=== PATIENT | female | born 1995 | race Caucasian/White ===

== ENCOUNTER 2019-11-24 11:26 | Inpatient (IN) ==
[2019-11-24] MEDS ORDERED: RINGER'S SOLUTION,LACTATED 1,000 ML IV ONE (18:39)
[2019-11-24] MEDS ORDERED: LIDOCAINE HCL 50 ML VIAL PERI PRN (18:39)
[2019-11-24] MEDS ORDERED: ONDANSETRON 4 MG TAB.RAPDIS PO PRN (18:39)
[2019-11-24] MEDS ORDERED: BUTORPHANOL TARTRATE 2 MG/ML VIAL IV PRN ×2 (18:39)
[2019-11-24] MEDS ORDERED: OXYTOCIN/DEXTROSE 5%-WATER 30 UNITS/500 ML BAG IV ONE (18:39)
[2019-11-24] MEDS: MISOPROSTOL 100 MCG TABLET VG PRN (19:34)
[2019-11-24 19:37] LABS: Cocaine Ur Negative (NEGATIVE); Urine Barbiturate Negative (NEGATIVE); Urine Benzodiazepines Negative (NEGATIVE); Urine Opiates Negative (NEGATIVE); Urine PCP Negative (NEGATIVE); Urine THC Negative (NEGATIVE)
[2019-11-24] MEDS: RINGER'S SOLUTION,LACTATED 1,000 ML IV PRN (19:38)
[2019-11-25] MEDS: MISOPROSTOL 100 MCG TABLET VG PRN ×2 (01:20→06:30)
[2019-11-25] MEDS: RINGER'S SOLUTION,LACTATED 1,000 ML IV PRN ×2 (10:39→20:26)
--- NOTE | 2019-11-25 12:43 | HP ---
Chief Complaint - Chief Complaint Date of Service: 11/25/19 Time of Service: 12:40 Chief Complaint: labor induction History of Present Illness: 24 year old at 39w 1d who presents for elective IOL. She reports ctx that are not painful. She denies vb or lof. Fetus is active. Medical History (Last Reviewed 11/25/19 @ 12:40 by Yady Li MD) Anxiety Depression Surgical History: Surgical History (Last Reviewed 11/25/19 @ 12:40 by Yady Li MD) No pertinent past surgical history Family History: Family History (Last Reviewed 11/25/19 @ 12:41 by Yady Li MD) Grandfather Melanoma Father Alive and well Mother Alive and well Social History: (Last Reviewed 11/25/19 @ 12:41 by Yady Li MD) Social History: adopted: No Marital status: Single household members: family current occupational status: unemployed current occupational exposures/hazards: No Highest education level completed: high school graduate Service: No Tobacco: Smoking Status: Former smoker Alcohol: alcohol intake: never Substance Use: substance use type: does not use Dietary Habits: caffeine: Yes caffeine comment: occasional Review Of Systems (GEN) - Review of Systems Generalized/Overall Review: Present: No Symptoms Reported Genitourinary: Present: Other - contractions Misc: All systems neg except as marked Immunizations: IMMUNIZATION HX Immunizations Up to Date Yes History of Influenza Vaccine More Information Required Hx Pneumococcal Vaccination More Information Required Allergies/Adverse Reactions: Allergies Allergy/AdvReac Type Severity Reaction Status Date / Time No Known Allergies Allergy Verified 11/24/19 19:18 Exam - Exam Vital Signs: Vital Signs - Last Taken Temp 36.4 C 11/24/19 18:39 Pulse 96 11/24/19 18:39 Resp 16 11/24/19 18:39 BP 134/70 11/24/19 18:39 Pulse Ox 100 11/24/19 18:39 Constitutional: Present: Alert, Oriented x3, Cooperative, No distress ENT Exam: Present: hearing grossly normal Neck: Present: supple Back Exam: Present: normal inspection, no CVA tenderness Respiratory: Present: lungs clear, normal breath sounds Cardiovascular/Chest: Present: regular rate, rhythm Abdomen: Present: soft, nontender, nondistended /Rectal: Present: Other - 2/80/-1 AROM for a large amount of clear fluid Extremity: Present: non-tender, no calf tenderness Skin Exam: Present: normal color, warm/dry, no cyanosis Appearance: Present: appropriate appearance Eye contact: Present: cooperative Thoughts: Present: normal thought pattern Diagnostic Studies: Laboratory Results Urine Opiates Screen Negative (NEGATIVE) 11/24/19 19:19 Barbiturate Screen Negative (NEGATIVE) 11/24/19 19:19 Ur Phencyclidine Scrn Negative (NEGATIVE) 11/24/19 19:19 Urine Amphetamine Negative (NEGATIVE) 11/24/19 19:19 U Benzodiazepines Scrn Negative (NEGATIVE) 11/24/19 19:19 Urine Cocaine Screen Negative (NEGATIVE) 11/24/19 19:19 Urine Marijuana (THC) Negative (NEGATIVE) 11/24/19 19:19 Blood Type O Positive 11/24/19 18:47 Antibody Screen Negative 11/24/19 18:47 Assessment/Plan - Narrative Narrative: 24 year old at 39w 1d Elective IOL: patient on pitocin and AROM GBS negative: prophylaxis not indicated FHT cat 1
[2019-11-25] MEDS ORDERED: BUPIVACAINE HCL/0.9 % NACL/PF 250 ML EP PRN (15:22)
[2019-11-25] MEDS ORDERED: ONDANSETRON HCL/PF 2 MG/ML VIAL IV PRN (15:22)
[2019-11-25] MEDS ORDERED: NALOXONE HCL 1 MG/1 ML SYRG IV PRN (15:22)
[2019-11-25] MEDS ORDERED: fentaNYL CITRATE/PF 50 MCG/ML AMPUL IT SCH (15:30)
--- NOTE | 2019-11-25 16:08 | ANES ---
Anesthesia Pre Procedure Eval Vitals/Labs: Last Vital Signs Temp 36.4 C 11/24/19 18:39 Pulse 96 11/24/19 18:39 Resp 16 11/24/19 18:39 BP 134/70 11/24/19 18:39 Pulse Ox 100 11/24/19 18:39 Allergies/Adverse Reactions: Allergies Allergy/AdvReac Type Severity Reaction Status Date / Time No Known Allergies Allergy Verified 11/24/19 19:18 - Planned Procedure Planned Procedure: ELECTIVE INDUCTION Medication List Reviewed:: Yes Allergies Verified: Yes Medical History (Last Reviewed 11/25/19 @ 16:07 by Adams David CRNA) Anxiety Depression Surgical History (Last Reviewed 11/25/19 @ 16:07 by Adams David CRNA) No pertinent past surgical history Family History (Last Reviewed 11/25/19 @ 16:07 by Adams David CRNA) Grandfather Melanoma Father Alive and well Mother Alive and well - Family Anesthesia History Family History:: no untoward family reactions to anesthesia - Airway/Neck/Teeth Within Normal Limits:: Yes Teeth Condition: intact Mallampatti Score: 1 Thyromental (T-M) distance: > 6 cm Mandibulo Hyoid distance: > 3 cm - Respiratory Respiratory Physical: lungs clear Smoking Status: Former smoker Sleep Apnea currently treated: No Sleep Apnea by current assessment: No - Cardiovascular Tolerate Activity: Good Heart Sounds: S1 & S2, Regular - Gastrointestinal NPO since: 1500 - Anesthesia Assessment and Plan ASA Class: PS, II, E Anesthesia Type Plan: Epidural Planned difficult intubation/equipment available: No
--- NOTE | 2019-11-25 16:08 | ANES ---
Post Anesthesia Discharge - Transfer of Care Transfer of Care handoff given to nurse: Yes - Anesthesia Post Op Note Anesthesia Post Op Note: care transferred to OB RN
--- NOTE | 2019-11-25 16:09 | ANES ---
Post Anesthesia Assessment - Vital Signs Vitals: Last Vital Signs Temp 36.4 C 11/24/19 18:39 Pulse 96 11/24/19 18:39 Resp 16 11/24/19 18:39 BP 134/70 11/24/19 18:39 Pulse Ox 100 11/24/19 18:39 Airway Patency: Normal - Mental Status Level Of Consciousness: Awake - Pain Level Pain Score: 2 - N/V Assessment Nausea/Vomiting Presence: None Dehydration:: No
--- NOTE | 2019-11-25 16:11 | ANES ---
Anesthesia Procedure Note Procedure Note: ANESTHESIA PROCEDURE NOTE Date of Procedure: 11/25/2019 Time of procedure: 1550. Performed by: Diony David CRNA Pleater: None. Preprocedure diagnosis: Active labor. Post procedure diagnosis: Same. Procedure: Insertion of labor epidural. Indications: The patient is a 24-year-old prima para female in active labor requesting labor epidural for pain management. Findings: See below. Details of the procedure: The patient was placed in a sitting position. Back was prepped with DuraPrep. Patient was then draped in a sterile fashion. Lidocaine 1% was infiltrated to the skin and subcutaneous tissues at the level of the L3 4 interspace. The epidural space was identified using a 18-gauge Tuohy needle with [id number] technique. 20 mcg fentanyl was given intrathecally using a 27 ga. spinal needle. Epidural catheter was inserted without difficulty. Negative test dose was elicited using 5 mL of 1.5% preservative-free lidocaine plus epinephrine 1 200,000. The epidural catheter was then taped and secured in place. EBL: Minimal. Fluids: N/A. Specimen: N/A. Post procedure condition: The patient tolerated the procedure well. No complications were noted. Thank you for this consultation. Box CRNA
--- NOTE | 2019-11-25 22:24 | OR ---
Operative Report - Dictated Report Narrative: Date of delivery: 11/25/2019 Time of delivery: 2156 Gender: female weight: 3047 grams APGARS: 07/28 Procedure: Description of the procedure: The patient is a 24 year old at 39w 1d who presented to labor and delivery for an elective IOL. She received misoprostol x3 followed by pitocin and AROM. She progressed to complete dilation. She delivered a viable female infant over an intact perineum. There was a slight delay from delivery of the head to the shoulders secondary to poor maternal effort. However, the shoulders delivered without difficulty followed by the rest of the infant. Cord clamping was delayed for 60 seconds due to vigorous . The cord was clamped and cut. The placenta was delivered by expression and appeared intact. EBL: 150 mL Laceration: left inferior labial, not repaired because it was hemostatic Complications: none Specimens: none History for MU Definition: * The number of deliveries resulting in a live the patient experienced prior to current hospitalization * The previous delivery of live twins or any live multiple gestation is considered one live event. *If primagravida or nulliparous is documented select zero for the number of previous live births. Live Events: 0
[2019-11-26] MEDS ORDERED: IBUPROFEN 800 MG TABLET PO PRN ×2 (01:39→07:34)
[2019-11-26] MEDS ORDERED: GLYCERIN/WITCH HAZEL LEAF 40 APPL BOX TP ONE (01:39)
[2019-11-26] MEDS ORDERED: BENZOCAINE/MENTHOL 81 SPRAY CAN TP PRN (07:34)
[2019-11-26] MEDS ORDERED: GLYCERIN/WITCH HAZEL LEAF 40 APPL BOX TP PRN (07:34)
[2019-11-26] MEDS ORDERED: SENNOSIDES 8.6 MG TABLET PO PRN (07:34)
[2019-11-26] MEDS ORDERED: HYDROCORTISONE 30 APPL TUBE TP PRN (07:34)
[2019-11-26] MEDS ORDERED: OXYTOCIN/DEXTROSE 5%-WATER 30 UNITS/500 ML BAG IV ONE (07:34)
[2019-11-26] MEDS ORDERED: oxyCODONE HCL/ACETAMINOPHEN 1 TAB TABLET PO PRN (07:34)
[2019-11-26] MEDS ORDERED: BISACODYL 10 MG SUPP.RECT RC PRN (07:34)
[2019-11-26] MEDS ORDERED: ACETAMINOPHEN 325 MG TABLET PO PRN (07:34)
--- NOTE | 2019-11-26 09:05 | PN ---
Subjective - Date and Time Seen Date: 11/26/19 Time: 09:04 Objective - Vitals Vitals: Last Vital Signs Temp 35.9 C L 11/26/19 07:00 Pulse 76 11/26/19 07:00 Resp 16 11/26/19 07:00 BP 109/66 11/26/19 07:00 Pulse Ox 99 11/26/19 07:00 Patient denies complaints. Lochia wnl abdomen - soft, nontender Uterus -firm, at umbilicus - 1 no calf tenderness Impression: day #1 - s/p spontaneous vaginal delivery. Plan: Continue routine care Cauti Physician Documentation - Urinary Catheter Management Urethral (Bhakta) Date of Insertion: 11/25/19 Time of Insertion: 16:33 Date of Removal: 11/25/19 Time of Removal: 21:10
[2019-11-26] MEDS: DOCUSATE SODIUM 100 MG CAPSULE PO SCH ×2 (09:11→21:04)
[2019-11-26] MEDS: PRENATAL VITS96/IRON FUM/FOLIC 1 TAB TABLET PO SCH (09:11)
[2019-11-26] MEDS: FERROUS SULFATE 325 MG TABLET PO SCH (09:11)
[2019-11-27] MEDS ORDERED: CALCIUM CARBONATE 500 MG TAB.CHEW PO PRN (03:42)
--- NOTE | 2019-11-27 06:43 | PN ---
Subjective - Date and Time Seen Date: 11/27/19 Time: 06:42 Objective - Vitals Vitals: Last Vital Signs Temp 36.3 C 11/27/19 00:10 Pulse 88 11/27/19 00:10 Resp 16 11/27/19 00:10 BP 99/53 11/27/19 00:10 Pulse Ox 96 11/27/19 00:10 Patient denies complaints. Bottlefeeding Lochia wnl abdomen - soft, nontender Uterus -firm, at umbilicus - 2 no calf tenderness Impression: day #2 - s/p spontaneous vaginal delivery. Plan: Routine discharge instructions Cauti Physician Documentation - Urinary Catheter Management Urethral (Bhakta) Date of Insertion: 11/25/19 Time of Insertion: 16:33 Date of Removal: 11/25/19 Time of Removal: 21:10
[2019-11-27 07:55] VITALS: BP 118/53
[2019-11-27] MEDS: PRENATAL VITS96/IRON FUM/FOLIC 1 TAB TABLET PO SCH (10:28)
[2019-11-27] MEDS: DOCUSATE SODIUM 100 MG CAPSULE PO SCH (10:28)
[2019-11-27] MEDS: FERROUS SULFATE 325 MG TABLET PO SCH (10:28)
== END 2019-11-27 12:45 | disposition home or self-care (01) | DRG 807 ==
LOC: OB 18:05
PROVIDERS: ADMIT Obstetrics & Gynecology; ATTEND Obstetrics & Gynecology
CPT/HCPCS: 59025; 80307; 86850